=== PATIENT | male | born 1985 | race Caucasian/White ===

== ENCOUNTER 2024-05-20 17:33 | Inpatient (IN) | payer OTHER, SELFPAY ==
--- OUTSIDE RECORDS SUMMARY | 2024-05-20 17:37 | XMS_ITS | Continuity of Care Document ---
Author Organization [facility] ter Address [address] [place] [id number]- Care Team Providers Care Claims Examiner Name Role Phone Not on Staff, PCP Primary Care Physician Unavail able Encounter [facility] Date(s): 03/31/20 - 04/02/[address] [address]- [facility] Discharge Disposition: A-D/C Home Attending Physician: Berta Vogel MD, Jessica Admitting Physician: Joe Funes MD Referring Physician: Not on Staff, Referring MD Allergies, Adverse Reactions, Alerts Substance Reaction Severity Status NKA Active Immunizations Given and Recorded Vaccine Date Status Refusal Reason tetanus/diphtheria/pertussis, acel(Tdap) 11/26/18 Given Medications folic acid 1 mg oral tablet 1 mg, 1, tablet, By Mouth, Daily, # 30 tablet, Refills 0, Tot. Refills 0, Maintenance, 03/15/20 11:02:00 EDT, Route to Pharmacy Electronically, [facility], 178, cm, 03/15/20 8:59:00 EDT, Height, 89, kg, 03/05/20 1:36:00 EDT, Dry Weight Start Date: 03/15/20 Status: Ordered multivitamin Therapeutic Multiple Vitamins oral tablet 1 tablet, By Mouth, Daily, # 30 tablet, 0 Refills, Maintenance, 03/15/20 11:02:00 EDT, Tablet, [facility], 1 tablet By Mouth Daily,x30 days, 178, cm, 03/15/20 8:59:00 EDT, Height, 89, kg, 03/05/20 1:36:00 EDT, Dry Weight Start Date: 03/15/20 Stop Date: 04/14/20 Status: Ordered thiamine 100 mg oral tablet 100 mg, 1, tablet, By Mouth, Daily, # 30 tablet, Refills 0, Tot. Refills 0, Acute 04/15/20 11:03:00EDT, 03/15/20 11:02:00 EDT, Route to Pharmacy Electronically, [facility], 178, cm, 03/15/20 8:59:00 EDT, Height, 89, kg, 03/05/20 1:36:00... Start Date: 03/15/20 Stop Date: 04/15/20 Status: Ordered Problem List Condition Effective Dates Status Health Status Inform ant Anxiety(Confirmed) Active Tobacco dependence syndrome(Confirmed) Active Results Radiology Reports * Exam Date Time Procedure Performing Provider Status 03/30/20 11:07 PM Chest 2 Views Frontal and Lat Quyen Dumont; Auth (Verified) Notes: (Chest 2 Views Frontal and Lat) Reason For Exam: Shortness of Breath RESULT: Chest 2 Views Frontal and Lat Chest 2 Views Frontal and Lat Refer to EMR; Reason: Shortness of Breath; Clinical Question(s): Pneumonia; Hx of Present Illness: pt presents w multiple complaints, recent health issues. 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 LUNGS AND PLEURA: Low lung volumes with mild basilar atelectasis. Lungs are otherwise clear with no consolidation. No pleural effusion. No pneumothorax. HEART, MEDIASTINUM AND JOEY: Heart is normal in size. Normal mediastinal and hilar contour. BONES AND SOFT TISSUES: No acute abnormality. IMPRESSION: Low lung volumes with mild bibasilar atelectasis. WSN: [id number] Ordering Physician: Edmundo Stuart Dictated By: Lance Mckeon DO Dictated Date/Time: 03/30/20 11:10 p Reviewed By: Lance Mckeon DO Signed By: Lance Mckeon DO Signed Date/Time: 03/30/20 11:10 pm Transcribed By: LESTER Transcribed Date/Time: 03/30/20 11:09 pm Vital Signs Most recent to oldest [Reference Range]: 1 2 3 Height 178 cm (04/02/20 8:40 AM) 178 cm (04/01/20 2:29 AM) 178 cm (03/31/20 7:47 PM) Weight 86 kg (03/31/20 5:18 PM) 87.1 kg (03/31/20 4:48 AM) 87.1 kg (03/31/20 1:31 AM) Oxygen Saturation [94-100 %] 94 % (04/02/20 8:40 AM) 96 % (04/02/20 2:45 AM) 98 % (04/01/20 7:57 PM) Pulse Rate [55-90 bpm] 78 bpm (04/02/20 8:40 AM) 88 bpm (04/02/20 2:45 AM) 85 bpm (04/01/20 7:57 PM) Body Mass Index [18.5-24.99] 27.14 *H* (03/31/20 5:18 PM) Blood Pressure [90-138/55-84 mm Hg] 135/90mm Hg (04/02/20 8:40 AM) 130/95mm Hg (04/02/20 2:45 AM) 126/87mm Hg (04/01/20 7:57 PM) Respiratory Rate [16-30 br/min] 18 br/min (04/02/20 8:40 AM) 18 br/min (04/02/20 2:45 AM) 18 br/min (04/01/20 7:57 PM) Temperature [96.8-100.4 DegF] 97.4 DegF (04/02/20 8:40 AM) 98.1 DegF (04/02/20 2:45 AM) 98.0 DegF (04/01/20 7:57 PM) Mode of Delivery (Oxygen) Room air (04/02/20 8:40 AM) Room air (04/02/20 2:45 AM) Room air (04/01/20 7:57 PM) Blood pressure sites Arm, left (04/02/20 8:40 AM) Arm, left (04/02/20 2:45 AM) Arm, left (04/01/20 7:57 PM) Temperature Route Oral (04/02/20 8:40 AM) Oral (04/02/20 2:45 AM) Oral (04/01/20 7:57 PM) Dry Weight 86 kg (03/31/20 5:18 PM) 87.1 kg (03/31/20 4:48 AM) 87.1 kg (03/31/20 1:31 AM) Weight Obtained Via Bed scale (03/31/20 5:18 PM) Standing scale (03/30/20 7:40 PM) Dry Weight Obtained Via Bed scale (03/31/20 5:18 PM) Standing scale (03/30/20 7:40 PM)
--- OUTSIDE RECORDS SUMMARY | 2024-05-20 17:37 | XMS_ITS | Continuity of Care Document ---
Author Organization [facility] ter Address [address] [place] [id number]- Care Team Providers Care Talent Development Specialist Name Role Phone Not on Staff, PCP Primary Care Physician Unavail able Encounter [facility] Date(s): 06/23/21 - 06/24/[address] [address]- Encounter Diagnosis Chest discomfort(Final) - 06/23/21 Discharge Disposition: A-D/C Home Attending Physician: Val Bhatti MD Admitting Physician: Val Bhatti MD Referring Physician: Not on Staff, Referring MD Allergies, Adverse Reactions, Alerts Substance Reaction Severity Status NKA Active Immunizations Given and Recorded Vaccine Date Status Refusal Reason tetanus/diphtheria/pertussis, acel(Tdap) 11/26/18 Given Medications multivitamin Therapeutic Multiple Vitamins oral tablet 1 tablet, By Mouth, Daily, # 30 tablet, 0 Refills, Maintenance, 03/15/20 11:02:00 EDT, Tablet, [facility], 1 tablet By Mouth Daily,x30 days, 178, cm, 03/15/20 8:59:00 EDT, Height, 89, kg, 03/05/20 1:36:00 EDT, Dry Weight Start Date: 03/15/20 Stop Date: 04/14/20 Status: Ordered Problem List Condition Effective Dates Status Health Status Inform ant Alcohol dependence(Confirmed) Active Anxiety(Confirmed) Active Tobacco dependence syndrome(Confirmed) Active Results Radiology Reports * Exam Date Time Procedure Performing Provider Status 06/23/21 3:04 PM Chest 2 Views Frontal and Lat Kaitlynn Ferrera; Auth (Verified) Notes: (Chest 2 Views Frontal and Lat) Reason For Exam: Chest Pain;Other: RESULT: Chest 2 Views Frontal and Lat Chest 2 Views Frontal and Lat Hx of Present Illness: pt states since Saturday c o weakness, general fatigue, chills. Having chest pain sharp to left side, sob without a cough. Nausea, abd pain epigastric, vomiting. diarrhea. Dailyetoh - last drink was yesterday. Also neck and back pain , no injury per pt; Reason: Other:; Chest Pain; Clinical Question(s): Other: COMPARISON: 03/30/2020. Study is limited because patient has not taken a proper inspiration. FINDINGS: LINES AND TUBES: None. LUNGS AND PLEURA: Clear lungs. Normal pulmonary vascularity. No pleural effusion. No pneumothorax. HEART, MEDIASTINUM AND JOEY: Heart is normal in size. Normal upper mediastinal and hilar contour. BONES AND SOFT TISSUES: No acute abnormality. IMPRESSION: No acute abnormality. WSN: [id number] Ordering Physician: Lexus Manzano Dictated By: Dwight Olivarez MD Dictated Date/Time: 06/23/21 3:09 pm Reviewed By: Dwight Olivarez MD Signed By: Dwight Olivarez MD Signed Date/Time: 06/23/21 3:09 pm Transcribed By: LESTER Transcribed Date/Time: 06/23/21 3:06 pm Vital Signs Most recent to oldest [Reference Range]: 1 2 3 Oxygen Saturation [94-100 %] 96 % (06/24/21 2:04 AM) 99 % (06/23/21 10:58 PM) 98 % (06/23/21 8:21 PM) Pulse Rate [55-90 bpm] 80 bpm (06/24/21 2:04 AM) 92 bpm *H* (06/23/21 10:58 PM) 89 bpm (06/23/21 8:21 PM) Blood Pressure [90-138/55-84 mm Hg] 138/86mm Hg (06/24/21 2:04 AM) 127/74mm Hg (06/23/21 10:58 PM) 160/109mm Hg *H* (06/23/21 8:21 PM) Respiratory Rate [16-30 br/min] 23 br/min (06/24/21 2:04 AM) 28 br/min (06/23/21 10:58 PM) 20 br/min (06/23/21 8:21 PM) Temperature [96.8-100.4 DegF] 98.2 DegF (06/24/21 2:04 AM) 98.6 DegF (06/23/21 10:58 PM) 98.6 DegF (06/23/21 8:21 PM) Mode of Delivery (Oxygen) Room air (06/24/21 2:04 AM) Room air (06/23/21 10:58 PM) Room air (06/23/21 8:21 PM) Blood pressure sites Arm, left (06/24/21 2:04 AM) Arm, left (06/23/21 10:58 PM) Arm, left (06/23/21 2:18 PM) Temperature Route Oral (06/24/21 2:04 AM) Oral (06/23/21 10:58 PM) Oral (06/23/21 8:21 PM) Social History Social History Type Response Tobacco Use: 4 or less cigar ettes(less than 1/4 pack)/day in last 30 days. Type: Cigarettes. Sex
--- OUTSIDE RECORDS SUMMARY | 2024-05-20 17:37 | XMS_ITS | Continuity of Care Document ---
Author Organization [facility] ter Address [address] [place] [id number]- Care Team Providers Care Sapphire Stylus Grinder Name Role Phone Not on Staff, PCP Primary Care Physician Unavail able Encounter [facility] Date(s): 07/27/21 - 08/01/[address] [address] Encounter Diagnosis Acute depression(Final) - 07/28/21 Discharge Disposition: Transfer to [facility] Facility Attending Physician: Haley Reagan MD Admitting Physician: Haley Reagan MD Referring Physician: Not on Staff, Referring MD Allergies, Adverse Reactions, Alerts Substance Reaction Severity Status NKA Active Immunizations Given and Recorded Vaccine Date Status Refusal Reason tetanus/diphtheria/pertussis, acel(Tdap) 11/26/18 Given Not Given Vaccine Date Status Refusal Reason influenza virus vaccine, inactivated 08/01/21 Not Given Patient Refuses Medications multivitamin Therapeutic Multiple Vitamins oral tablet [...] Active Anxiety(Confirmed) Active Tobacco dependence syndrome(Confirmed) Active Vital Signs Most recent to oldest [Reference Range]: 1 2 3 Height 180 cm (08/01/21 9:02 AM) 180 cm (07/31/21 8:03 PM) 180 cm (07/31/21 12:39 PM) Weight 83 kg (07/31/21 12:39 PM) Oxygen Saturation [94-100 %] 97 % (08/01/21 9:02 AM) 99 % (07/31/21 8:03 PM) 100 % (07/31/21 12:39 PM) Pulse Rate [55-90 bpm] 94 bpm *H* (08/01/21 9:02 AM) 76 bpm (07/31/21 8:03 PM) 71 bpm (07/31/21 12:39 PM) Body Mass Index [18.5-24.99] 25.62 *H* (07/31/21 12:39 PM) Blood Pressure [90-138/55-84 mm Hg] 133/84mm Hg (08/01/21 9:02 AM) 121/73mm Hg (07/31/21 8:03 PM) 123/80mm Hg (07/31/21 12:39 PM) Respiratory Rate [16-30 br/min] 18 br/min (08/01/21 9:02 AM) 18 br/min (07/31/21 8:03 PM) 17 br/min (07/31/21 12:39 PM) Temperature [96.8-100.4 DegF] 97.8 DegF (08/01/21 9:02 AM) 97.7 DegF (07/31/21 8:03 PM) 96.7 DegF *L* (07/31/21 12:39 PM) Liters per Minute 1 L/min (07/27/21 1:02 PM) 1 L/min (07/27/21 11:53 AM) 1 L/min (07/27/21 11:43 AM) Mode of Delivery (Oxygen) Room air (08/01/21 9:02 AM) Room air (07/31/21 8:03 PM) Room air (07/31/21 12:39 PM) Blood pressure sites Arm, right (07/31/21 12:39 PM) Arm, right (07/31/21 6:50 AM) Arm, right (07/30/21 11:03 PM) Temperature Route Core (08/01/21 9:02 AM) Temporal (07/31/21 8:03 PM) Temporal (07/31/21 12:39 PM) Dry Weight 83 kg (07/31/21 12:39 PM) Weight Obtained Via Standing scale (07/31/21 12:39 PM) Social History Social History Type Response Tobacco Use: 4 or less cigar ettes(less than 1/4 pack)/day in last 30 days. Type: Cigarettes. Sex
--- OUTSIDE RECORDS SUMMARY | 2024-05-20 17:37 | XMS_ITS | Continuity of Care Document ---
Author Organization [facility] ter Address [address] [place] [address]- Care Team Providers Care Splitting Machine Tender Name Role Phone Not on Staff, PCP Primary Care Physician Unavail able Encounter [facility] Date(s): 03/04/20 - 03/15/[address] [address]- [facility] Encounter Diagnosis Acute pancreatitis(Final) - 03/04/20 Discharge Disposition: A-D/C Home Attending Physician: Augusta DODSON, Hattie Greene Admitting Physician: Luke Palacios MD Referring Physician: Not on Staff, Referring MD Allergies, Adverse Reactions, Alerts Substance Reaction Severity Status NKA Active Immunizations Given and Recorded Vaccine Date Status Refusal Reason tetanus/diphtheria/pertussis, acel(Tdap) 11/26/18 Given Medications folic acid 1 mg oral tablet 1 mg, 1, tablet, By Mouth, Daily, # 30 tablet, Refills 0, Tot. Refills 0, Maintenance, 03/15/20 11:02:00 EDT, Route to Pharmacy Electronically, [facility], 178, cm, 03/15/20 8:59:00 EDT, Height, 89, kg, 03/05/20 1:36:00 EDT, Dry Weight Start Date: 03/15/20 Status: Ordered multivitamin Therapeutic Multiple Vitamins oral tablet 1 tablet, By Mouth, Daily, # 30 tablet, 0 Refills, Maintenance, 03/15/20 11:02:00 EDT, Tablet, [facility], 1 tablet By Mouth Daily,x30 days, 178, cm, 03/15/20 8:59:00 EDT, Height, 89, kg, 03/05/20 1:36:00 EDT, Dry Weight Start Date: 03/15/20 Stop Date: 04/14/20 Status: Ordered thiamine 100 mg oral tablet 100 mg, 1, tablet, By Mouth, Daily, # 30 tablet, Refills 0, Tot. Refills 0, Acute 04/15/20 11:03:00EDT, 03/15/20 11:02:00 EDT, Route to Pharmacy Electronically, [facility], 178, cm, 03/15/20 8:59:00 EDT, Height, 89, kg, 03/05/20 1:36:00... Start Date: 03/15/20 Stop Date: 04/15/20 Status: Ordered vancomycin 25 mg/mL oral liquid 5 mL = 125 mg, By Mouth, Every 6 hours, Doses greater than 125 mg require ID consult., # 200 mL, 0 Refills, Acute 03/24/20 23:59:00 EDT, 03/15/20 11:04:00 EDT, Suspension, [facility], 178, cm, 03/15/20 8:59:00 EDT, Height, 89, kg, 03/05/... Start Date: 03/15/20 Stop Date: 03/24/20 Status: Ordered Problem List Condition Effective Dates Status Health Status Inform ant Anxiety(Confirmed) Active Tobacco dependence syndrome(Confirmed) Active Results Orders for Microbiology Reports Name Date Stool Culture 03/09/20 Blood Culture 03/07/20 Blood Culture #2 03/07/20 MRSA Screen 03/06/20 Sputum Culture w/ Gram Smear 03/06/20 Microbiology Reports TEST:Stool Culture STATUS:Auth (Verified) BODY SITE: SOURCE:STOOL COLLECTED DATE/TIME:03/09/20 10:15 AM Stool Culture SPECIMEN DESCRIPTION : STOOL IN MARK MAGALY PRESERVATIVE SPECIAL REQUESTS : NONE CULTURE : SHIGA TOXIN 1 AND 2 NOT DETECTED NO SALMONELLA, SHIGELLA, CAMPYLOBACTER, AEROMONAS OR E.COLI O157:[id number] ISOLATED. REPORT STATUS : FINAL 03/11/2020 TEST:Blood Culture STATUS:Auth (Verified) BODY SITE: SOURCE:Blood COLLECTED DATE/TIME:03/07/20 10:41 AM Blood Culture SPECIMEN DESCRIPTION : BLOOD NO SITE SPECIAL REQUESTS : NONE CULTURE : NO GROWTH 5 DAYS. REPORT STATUS : FINAL 03/12/2020 TEST:Blood Culture, Second Order STATUS:Auth (Verified) BODY SITE: SOURCE:Blood COLLECTED DATE/TIME:03/07/20 10:41 AM Blood Culture, Second Order SPECIMEN DESCRIPTION : BLOOD NONE SPECIAL REQUESTS : NONE CULTURE : NO GROWTH 5 DAYS. REPORT STATUS : FINAL 03/12/2020 TEST:Sputum Culture STATUS:Auth (Verified) BODY SITE: SOURCE:EXPECT COLLECTED DATE/TIME:03/06/20 5:06 PM Sputum Culture SPECIMEN DESCRIPTION : EXPECTORATED SPUTUM SPECIAL REQUESTS : NONE GRAM STAIN : 4+ SQ.EPITHELIAL CELLS 2+ POLYMORPHONUCLEAR LEUKOCYTES 3+ GRAM POSITIVE COCCI 3+ GRAM NEGATIVE RODS 2+ GRAM POSITIVE RODS CULTURE : MICROSCOPIC EXAM SHOWS SQUAMOUS EPITHELIAL CELLS INDICATIVE OF OROPHARYNGEAL CONTAMINATION. PLEASE RECOLLECT APPROPRIATE SPECIMEN FOR CULTURE IF CLINICALLY INDICATED. REPORT STATUS : FINAL 03/07/2020 TEST:MRSA Screen STATUS:Auth (Verified) BODY SITE: SOURCE:SWAB1 COLLECTED DATE/TIME:03/06/20 5:06 PM MRSA Screen SPECIMEN DESCRIPTION : SWAB NARES LT SPECIAL REQUESTS : NONE CULTURE : NO METHICILLIN RESISTANT STAPHYLOCOCCUS AUREUS ISOLATED REPORT STATUS : FINAL 03/08/2020 Radiology Reports * Exam Date Time Procedure Performing Provider Status 03/10/20 6:58 AM Abdomen AP Solis, William; Auth (Veri fied) Notes: (Abdomen AP) Reason For Exam: Pain RESULT: XR Abdomen AP XR Abdomen AP Refer to EMR; Reason: Pain; Clinical Question(s): Other:; toxic megacolon, C Diff infection; Hx of Present Illness: pt reports generalized abd. discomfort, dark urine and hematuria since last evening. denies NVD, last BM yesterday and described as normal , denies fevers cough cold symptoms but sts the pain makes me feel short of breath denies blood thinner use.; Other Objective Findings: pt is COMPARISON: CT abdomen 03/04/2020 FINDINGS: Normal bowel gas pattern. No abnormal stool retention. No abnormal calcifications. No acute bony abnormalities. IMPRESSION: No acute abnormality. WSN: [id number] Ordering Physician: Sabiha Mendoza Dictated By: Vivek Lagunas MD Dictated Date/Time: 03/10/20 8:00 am Reviewed By: Vivek Lagunas MD Signed By: Vivek Lagunas MD Signed Date/Time: 03/10/20 8:00 am Transcribed By: LESTER Transcribed Date/Time: 03/10/20 7:57 am * Exam Date Time Procedure Performing Provider Status 03/07/20 11:51 AM Chest Portable Ni Tran Ness; Yasmani (Verified) Notes: (Chest Portable) Reason For Exam: dyspnea;Other: RESULT: Chest Portable Examination: Portable chest performed on 03/07/2020 at 11:31 AM. History: Dyspnea. Findings: A frontal view of the chest is compared to a prior study dated 03/05/2020. The cardiac and mediastinal silhouettes are within normal limits. Low lung volumes persist. There is no significant change in the left pleural effusion. Bibasilar airspace opacities are also seen. The osseous structures are intact. IMPRESSION: There is no change from the prior study. WSN: [id number] Ordering Physician: Diogenes Flores Dictated By: Amelia Rivera MD Dictated Date/Time: 03/07/20 11:54 a Reviewed By: Amelia Rivera MD Signed By: Amelia Rivera MD Signed Date/Time: 03/07/20 11:54 am Transcribed By: LESTER Transcribed Date/Time: 03/07/20 11:53 am * Exam Date Time Procedure Performing Provider Status 03/05/20 9:53 PM Chest Portable Lyn Dove; Yasmani (V erified) Notes: (Chest Portable) Reason For Exam: CHF RESULT: Chest Portable Chest Portable REASON: CHF; CLINICAL QUESTION(S): CHF; HX OF PRESENT ILLNESS: PT REPORTS GENERALIZED ABD. DISCOMFORT, DARK URINE AND HEMATURIA SINCE LAST EVENING. DENIES NVD, COMPARISON: 03/04/2020 FINDINGS: LINES AND TUBES: None. LUNGS AND PLEURA: Left pleural effusion. Bilateral airspace disease could be related to atelectasis or consolidation. HEART, MEDIASTINUM AND JOEY: Unchanged. BONES AND SOFT TISSUES: No acute abnormality. IMPRESSION: New left pleural effusion. Bibasilar opacities could be related to consolidation or atelectasis. WSN: [id number] Ordering Physician: Sabiha Mendoza Dictated By: Torin Edwards MD Dictated Date/Time: 03/05/20 10:27 p Reviewed By: Torin Edwards MD Signed By: Torin Edwards MD Signed Date/Time: 03/05/20 10:27 pm Transcribed By: LESTER Transcribed Date/Time: 03/05/20 10:25 pm * Exam Date Time Procedure Performing Provider Status 03/04/20 2:57 PM Chest Portable Libra Pinedo; Kenny h (Verified) Notes: (Chest Portable) Reason For Exam: Abdominal Pain RESULT: Chest Portable Chest Portable Refer to EMR; Reason: Abdominal Pain; Clinical Question(s): Other:; Special Instructions: Upright, evaluate for free air; Hx of Present Illness: pt reports generalized abd. discomfort, dark urine andhematuria since last evening. denies NVD, last BM yesterday and described as normal , denies fevers cough cold symptoms but sts the pain makes me feel short of breath denies blood thinner use. COMPARISON: None. FINDINGS: LINES AND TUBES: None. LUNGS AND PLEURA: Linear platelike atelectasis right base. Low lung volumes bilaterally. No pleural effusion. No pneumothorax. HEART, MEDIASTINUM AND JOEY: Heart is normal in size. Normal mediastinal and hilar contour. BONES AND SOFT TISSUES: No acute abnormality. No evidence of free intraperitoneal air. IMPRESSION: Low lung volumes with linear platelike atelectasis right base. Otherwise no active disease. No evidence of free intraperitoneal air. WSN: [id number] Ordering Physician: Jory Giles Dictated By: Mason Pierce MD Dictated Date/Time: 03/04/20 3:04 pm Reviewed By: Mason Pierce MD Signed By: Mason Pierce MD Signed Date/Time: 03/04/20 3:04 pm Transcribed By: LESTER Transcribed Date/Time: 03/04/20 3:01 pm Vital Signs Most recent to oldest [Reference Range]: 1 2 3 Height 178 cm (03/15/20 8:59 AM) 178 cm (03/15/20 4:59 AM) 178 cm (03/14/20 11:57 PM) Weight 81.6 kg (03/13/20 5:56 AM) 75.3 kg (03/05/20 1:45 PM) 88.0 kg (03/05/20 1:24 AM) Oxygen Saturation [94-100 %] 99 % (03/15/20 8:59 AM) 97 % (03/15/20 4:59 AM) 93 % *L* (03/14/20 11:57 PM) Pulse Rate [55-90 bpm] 88 bpm (03/15/20 8:59 AM) 87 bpm (03/15/20 4:59 AM) 83 bpm (03/14/20 11:57 PM) Body Mass Index [18.5-24.99] 25.75 *H* (03/13/20 5:56 AM) 23.77 (03/05/20 1:45 PM) 28.09 *H* (03/05/20 1:07 AM) Blood Pressure [90-138/55-84 mm Hg] 150/85mm Hg *H* (03/15/20 8:59 AM) 120/80mm Hg (03/15/20 4:59 AM) 140/85mm Hg *H* (03/14/20 11:57 PM) Respiratory Rate [16-30 br/min] 28 br/min (03/15/20 8:59 AM) 16 br/min (03/15/20 4:59 AM) 18 br/min (03/14/20 11:57 PM) Temperature [96.8-100.4 DegF] 98.3 DegF (03/15/20 8:59 AM) 97.9 DegF (03/15/20 4:59 AM) 98.3 DegF (03/14/20 11:57 PM) Liters per Minute 2 L/min (03/11/20 2:00 AM) 2 L/min (03/10/20 11:00 PM) 3 L/min (03/10/20 7:00 PM) Mode of Delivery (Oxygen) Room air (03/15/20 8:59 AM) Room air (03/15/20 4:59 AM) Room air (03/14/20 11:57 PM) Blood pressure sites Arm, left (03/15/20 8:59 AM) Arm, left (03/15/20 4:59 AM) Arm, right (03/14/20 11:57 PM) Temperature Route Oral (03/15/20 8:59 AM) Oral (03/15/20 4:59 AM) Oral (03/14/20 11:57 PM) Dry Weight 89 kg (03/05/20 1:07 AM) Weight Obtained Via Bed scale (03/13/20 5:56 AM) Bed scale (03/05/20 1:45 PM) Bed scale (03/05/20 1:24 AM) Dry Weight Obtained Via Bed scale (03/05/20 1:07 AM)
--- OUTSIDE RECORDS SUMMARY | 2024-05-20 17:37 | XMS_ITS | Continuity of Care Document ---
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 Role Phone Not on Staff, PCP Primary Care Physician Unavail able Encounter [facility] Date(s): 02/24/21 - 03/02/[address] [address]- Discharge Disposition: A-D/C Home Attending Physician: Andrae DODSON, Laura Medley Admitting Physician: Gabrielle DODSON, Coreen Medley Referring Physician: Emerson Shell DO Allergies, Adverse Reactions, Alerts Substance Reaction Severity Status NKA Active Immunizations Given and Recorded Vaccine Date Status Refusal Reason tetanus/diphtheria/pertussis, acel(Tdap) 11/26/18 Given Medications acetaminophen 325 mg oral tablet 650 mg, By Mouth, 3 times a day, PRN, for 7 days, Temperature Greater than 100.5, # 24 tablet, Refills 0, Tot. Refills 0, Acute 03/09/21 14:15:00 EDT, Pain , Moderate, 03/02/21 14:15:00 EDT, Route toPharmacy Electronically, [facility] #[id number]... Start Date: 03/02/21 Stop Date: 03/09/21 Status: Ordered FLUoxetine 10 mg oral capsule 10 mg, 1, capsule, By Mouth, Daily, # 30 capsule, Refills 0, Tot. Refills 0, Maintenance, 03/02/21 14:15:00 EDT, Route to Pharmacy Electronically, [facility] #[id number], Partial fill upon patient request if the prescription is for a schedule II... Start Date: 03/02/21 Stop Date: 04/01/21 Status: Ordered HYDROmorphone Inj 1.5 mg, Injection, IV Push Slowly, Every 3 hours, Start with a dose now., PRN for Pain , Severe, Routine, 02/24/21 23:36:00 EDT Start Date: 02/24/21 Stop Date: 03/03/21 Status: Discontinued multivitamin Therapeutic Multiple Vitamins oral tablet 1 tablet, By Mouth, Daily, # 30 tablet, 0 Refills, Maintenance, 03/15/20 11:02:00 EDT, Tablet, [facility], 1 tablet By Mouth Daily,x30 days, 178, cm, 03/15/20 8:59:00 EDT, Height, 89, kg, 03/05/20 1:36:00 EDT, Dry Weight Start Date: 03/15/20 Stop Date: 04/14/20 Status: Ordered Nicoderm C-Q Clear 21 mg/24 hr transdermal film, extended release 1 patch, Topically, Daily, for 30 days, # 30 patch, 0 Refills, Acute 04/01/21 14:17:00 EDT, 03/02/21 14:17:00 EDT, Patch, [facility] #[id number], Partial fill upon patient request if the prescription is for a schedule II opioid drug., 176, cm, 05... Start Date: 03/02/21 Stop Date: 04/01/21 Status: Ordered prazosin 1 mg oral capsule 1 mg, 1, capsule, By Mouth, Daily at bedtime, # 30 capsule, Refills 0, Tot. Refills 0, Maintenance,03/02/21 14:15:00 EDT, Route to Pharmacy Electronically, [facility] #[id number], Partial fill upon patient request if the prescription is for a sc... Start Date: 03/02/21 Stop Date: 04/01/21 Status: Ordered prazosin 1 mg oral capsule 1 mg, Capsule, By Mouth, 03/01/21 21:00:00 EDT Start Date: 03/01/21 Stop Date: 03/01/21 Status: Completed thiamine 100 mg oral tablet 100 mg, 1, tablet, By Mouth, Daily, for 30 days, # 30 tablet, Refills 0, Tot. Refills 0, Acute 04/01/21 14:16:00 EDT, 03/02/21 14:16:00 EDT, Route to Pharmacy Electronically, [facility] #[id number], Partial fill upon patient request if the prescr... Start Date: 03/02/21 Stop Date: 04/01/21 Status: Ordered traZODone 50 mg oral tablet 100 mg, 2, tablet, By Mouth, Daily at bedtime, # 60 tablet, Refills 0, Tot. Refills 0, Maintenance,03/02/21 14:16:00 EDT, Route to Pharmacy Electronically, [facility] #[id number], Partial fill upon patient request if the prescription is for a sc... Start Date: 03/02/21 Status: Ordered Problem List Condition Effective Dates Status Health Status Inform ant Alcohol dependence(Confirmed) Active Anxiety(Confirmed) Active Tobacco dependence syndrome(Confirmed) Active Results Orders for Microbiology Reports Name Date Blood Culture 02/24/21 Blood Culture #2 02/24/21 Microbiology Reports TEST:Blood Culture, Second Order STATUS:Auth (Verified) BODY SITE: SOURCE:Blood COLLECTED DATE/TIME:02/24/21 10:10 PM Blood Culture, Second Order SPECIMEN DESCRIPTION : BLOOD LEFT HAND SPECIAL REQUESTS : NONE CULTURE : NO GROWTH 5 DAYS. REPORT STATUS : FINAL 03/01/2021 TEST:Blood Culture STATUS:Auth (Verified) BODY SITE: SOURCE:Blood COLLECTED DATE/TIME:02/24/21 10:05 PM Blood Culture SPECIMEN DESCRIPTION : BLOOD RIGHT HAND SPECIAL REQUESTS : NONE CULTURE : NO GROWTH 5 DAYS. REPORT STATUS : FINAL 03/01/2021 Radiology Reports * Exam Date Time Procedure Performing Provider Status 02/26/21 8:43 AM Chest 2 Views Frontal and Lat Michelle Stacy; Auth (Verified) Notes: (Chest 2 Views Frontal and Lat) Reason For Exam: left chest pain, hypoxia, diminished in left base,? pna, effusion;Shortness of Breath RESULT: Chest 2 Views Frontal and Lat Chest 2 Views Frontal and Lat REASON: Shortness of Breath; left chest pain, hypoxia, diminished in left base, ? pna, effusion; Clinical Question(s): Pneumonia / Pneumonia COMPARISON: 03/30/2020, CT abdomen and pelvis from 02/24/2021. FINDINGS: LINES AND TUBES: None. LUNGS AND PLEURA: Low lung volumes. Bibasilar airspace opacity, left worse than right. Small bilateral pleural effusions. No pneumothorax. HEART, MEDIASTINUM AND JOEY: Heart is normal in size. Normal mediastinal and hilar contour. BONES AND SOFT TISSUES: No acute osseous abnormality. Gas-filled loops of bowel in the midabdomen. IMPRESSION: Small bilateral pleural effusions with bibasilar airspace opacity which could be due to atelectasis, pneumonia, or aspiration. WSN: [id number] Ordering Physician: Bahman Tipton Dictated By: Chris Mejia MD Dictated Date/Time: 02/26/21 1:52 pm Reviewed By: Chris Mejia MD Signed By: Chris Mejia MD Signed Date/Time: 02/26/21 1:52 pm Transcribed By: LESTER Transcribed Date/Time: 02/26/21 1:51 pm Vital Signs Most recent to oldest [Reference Range]: 1 2 3 Height 176 cm (03/02/21 2:00 PM) 176 cm (03/02/21 4:16 AM) 176 cm (03/01/21 8:02 PM) Weight 95 kg (02/25/21 1:51 AM) 91.4 kg (02/24/21 10:47 PM) 91.4 kg (02/24/21 9:13 PM) Oxygen Saturation [94-100 %] 93 % *L* (03/02/21 2:00 PM) 91 % *L* (03/02/21 4:16 AM) 92 % *L* (03/01/21 8:02 PM) Pulse Rate [55-90 bpm] 89 bpm (03/02/21 2:00 PM) 89 bpm (03/02/21 4:16 AM) 93 bpm *H* (03/01/21 8:02 PM) Body Mass Index [18.5-24.99] 29.51 *H* (02/24/21 10:47 PM) 29.51 *H* (02/24/21 9:13 PM) 29.51 *H* (02/24/21 6:27 PM) Blood Pressure [90-138/55-84 mm Hg] 141/95mm Hg *H* (03/02/21 2:00 PM) 140/85mm Hg *H* (03/02/21 4:16 AM) 141/97mm Hg *H* (03/01/21 11:12 PM) Respiratory Rate [16-30 br/min] 20 br/min (03/02/21 3:08 PM) 20 br/min (03/02/21 2:00 PM) 18 br/min (03/02/21 11:47 AM) Temperature [96.8-100.4 DegF] 99.2 DegF (03/02/21 2:00 PM) 98.1 DegF (03/02/21 4:16 AM) 98.7 DegF (03/01/21 8:02 PM) Liters per Minute 2 L/min (03/01/21 5:05 AM) 2 L/min (02/28/21 8:11 PM) 2 L/min (02/28/21 2:00 PM) Mode of Delivery (Oxygen) Room air (03/02/21 2:00 PM) Room air (03/02/21 4:16 AM) Room air (03/01/21 8:02 PM) Blood pressure sites Arm, right (03/02/21 2:00 PM) Arm, right (03/02/21 4:16 AM) Arm, left (03/01/21 8:02 PM) Temperature Route Oral (03/02/21 2:00 PM) Oral (03/02/21 4:16 AM) Oral (03/01/21 8:02 PM) Dry Weight 91.4 kg (02/24/21 10:47 PM) 91.4 kg (02/24/21 9:13 PM) 91.4 kg (02/24/21 6:30 PM) Weight Obtained Via Standing scale (02/25/21 1:51 AM) Standing scale (02/24/21 6:27 PM) Dry Weight Obtained Via Standing scale (02/24/21 6:27 PM) Social History Social History Type Response Tobacco Use: 4 or less cigar ettes(less than 1/4 pack)/day in last 30 days. Type: Cigarettes. Sex
[2024-05-20 17:54] VITALS: BMI 26.3
[2024-05-20 17:56] VITALS: BP 122/68; PULSE 97; TEMP 36.3; O2SAT 99
--- NOTE | 2024-05-20 19:08 | PC.ADMIT ---
This 39 y.o. male was referred from [facility] Care Team with Dx of SI, Medication Overdose. Nurse to nurse done prior to admission. Dr Chirinos cleared pt for admission after reviewing EKG and aware of pending tox screen. Arrived on unit at 1744 via ambulance and placed on 15 min safety checks. CV signed and accepted in [facility] by Dr Vega. Precipitating events to admission; presented to [facility] [place] ambulance on [address] due to taking an unknown amt of Seroquel and cutting self. Pt's response to this report is that he took 3 100mg tabs of Seroquel. States his dosage had been 300mg and he is currently being weaned to lesser dose. Superficial cuts noted left lower and upper arm-4 deeper cuts and multiple scratch areas. Pt reports he has a hx of cutting, which is not a suicide attempt. Scratch noted posterior right neck, unknown origin per pt. Denies medical issues. RUIZ results not obtained from [facility] Pt reports etoh occasionally, last use 5 dasy ago-2 glasses of wine. Reports cocaine use every 2 weeks, last use 7 days ago. Hx outpt substance treatment. Med reconciliation done with [facility] pharmacy. Maria Ines Garnre , provider, notified of admission and orders obtained. Hospitalist consult to be ordered. Cooperative with admission process. Has difficulty expressing self and relaying information at times. Does well when time allowed to respond to questions. Skin check done upon admission during exchange mechanic; 2 staff members present.
[2024-05-20] MEDS: traZODone HCL 50 MG TABLET PO (20:12)
[2024-05-20] MEDS: Nicotine Polacrilex 2 MG GUM BUCCAL (20:12)
[2024-05-20] MEDS: QUEtiapine Fumarate 300 MG TABLET PO (20:13)
[2024-05-20] MEDS: hydrOXYzine HCL 25 MG TABLET PO (20:13)
[2024-05-21] MEDS: Nicotine 21 MG PATCH.TD24 TRANSDERMA (09:38)
[2024-05-21] MEDS: Sertraline HCL 50 MG TABLET 150 MG PO (09:39)
[2024-05-21] MEDS: Naltrexone HCl 50 MG TABLET PO (09:39)
[2024-05-21 10:50] VITALS: BP 115/64; PULSE 94; RESP 18; TEMP 37; O2SAT 99
--- NOTE | 2024-05-21 11:39 | HO.PSYADMNOT ---
HPI Date of Service: 05/21/24 Chief Complaint: SI Sources of Information: patient interviewed, chart reviewed and crisis/core team assessment reviewed HPI Subjective Notes: Saenz Warning and Conditional Voluntary Healthcare Proxy: No Guardianship: No Medical Problems Affecting Mental Status: No Narrative: 39 yo male, hx of PTSD, depression, s/p overtaking of Seroquel prior to admission in an effort to sleep along with 3 forearm cuts (reports he has not cut in several years). Family was concerned about SI and encouraged him to admit. 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 Reports poor support at work, difficulty adjusting to the change in sleep schedule and attempting to manage chronic insomnia. Pt reports he cut for relief vs suicidality and believes he over-reacted due to chronic sleep deprivation. He states he needs to quit the job and find something more workable for a reasonable family lifestyle. Past Psychiatric History: IP: 2-3-Angelica, Kendy López OP: Ni Years; [facility] telehealth for meds Trials: Seroquel up to 300 mg hs, Trazodone-ineffective Suicide attempts: Denies Medical Evaluation Reviewed: Yes [facility] Medical History (Updated 05/21/24 @ 19:01 by Shelbi Quintana, RADIOLOGIC TECHNOLOGIST) PTSD (post-traumatic stress disorder) Depression Anxiety Alcohol use disorder Family History: PTSD Mom alcoholism Social History: Born in [place], Raised in [place], to [place] age 8 then returned to [place]. Childhood very difficult as pt at age 4-5 with family witnessed his father's murder. Mother has alcoholism and mood dysregualtion. 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 Hx of 6 months incarcerated 2 children, a sone age 10 and a daughter age 7. They live with their mother Substance History: AA-hx ETOH cocaine on occasion 1-2 x month Trauma History: Witness to father's murder, age 4-5 Diagnostics Vital Signs (24Hr): Vital Signs - 24 hr 05/20/24 17:56 05/21/24 10:50 Temperature 97.3 F 98.6 F Pulse Rate 97 94 Respiratory Rate 18 Blood Pressure 122/68 115/64 Pulse Oximetry 99 99 Oxygen Delivery Method Room Air Room Air BMI result Body Mass Index 26.3 Labs Labs: CBCD- WNL CMP Glucose 94 GFR 114, 111 TSH 0.42 BAL 0 Meds/Allergies Meds Home Medications ?Medication ?Instructions ?Recorded ?Confirmed ?Type hydroxyzine pamoate 50 mg capsule 50 mg PO BID PRN Anxiety 05/20/24 05/20/24 History naltrexone 50 mg tablet 50 mg PO DAILY 05/20/24 05/20/24 History quetiapine 300 mg tablet 300 mg PO BEDTIME 05/20/24 05/20/24 History sertraline 100 mg tablet 150 mg PO DAILY 05/20/24 05/20/24 History Allergies Allergies Allergy/AdvReac Type Severity Reaction Status Date / Time sertraline [From ZOLOFT] AdvReac Unknown SUICIDAL Unverified 07/07/20 19:48 THOUGHTS Mental Status Exam Mental Status Exam Patient Appearance: Appropriate Patient Orientation: Person, Place, Time and Situation Level of Consciousness: Alert Patient Behavior: Appropriate, Talkative, Cooperative and Good Eye Contact Mood Description: Depressed Affect Description: Flat Patient Cognition Impaired: No Ability to Follow Directions: Good Speech Pattern: Spontaneous Speech Memory Description: Intact Hallucinations: None Delusions: Not Present Thought Process: Rumination Thought Content: positive for Perseveration and positive for Suicidal Ideation (denies) Depressive Symptoms: Thoughts of /Suicide (denies) Judgement: Good Assessment & Plan Assessment & Plan (1) PTSD (post-traumatic stress disorder): Status: Acute Code(s): F43.10 - Post-traumatic stress disorder, unspecified (2) Adjustment reaction with mixed disturbance of emotions and conduct: Status: Acute Code(s): F43.25 - Adjustment disorder with mixed disturbance of emotions and conduct Plan PTSD, Adjustment Reaction, Mixed. Plan: Admit, CV, 15 minute checks Encourage full milieu Remeron 7.5 mg HS Decrease Seroquel to 100 mg HS Collateral contacts [facility] referral Discharge planning. Patient educated on: therapeutic strategies Reason for continued inpatient stay Substantial Risk for: rapid decompensation Statement Statement: I have reviewed the history and physical and performed a pertinent examination on my patient. No changes have occurred unless specified. If the History and Physical was not performed prior to admission, the Hospitalist's service will be consulted for completing the admission physical. Time Spent With Patient Time: Total time managing care of this patient today ____ minutes.
--- NOTE | 2024-05-21 13:00 | HO.PM.IMCN ---
History of Present Illness Data of Consult Service Date: 05/21/24 Primary Care Provider: Thomas Physician HPI Reason for consult: Admission H&P Pt is a 39-year-old male with a PMH significant for?alcohol use disorder, anxiety, depression, and prior self-harm who is admitted to psychiatry unit for increasing depression and SI. Patient notes she presented to [facility] ED with concerns for possible toxic ingestion of home Seroquel. Patient reports that he only took 3 tablets of Seroquel, but patient's girlfriend was concerned he consumed more. Patient also had superficially cut his left arm multiple times. Medical consult for admission H&P. ?Patient currently has no acute medical complaints at this time. Denies chest pain/pressure, palpitations. No shortness a breath or difficulty breathing. Denies cough or sore throat. No fever, chills, nausea, vomiting, abdominal pain. Patient denies any recent alcohol intake. Review of Systems Review of Systems: Patient denies any acute medical concerns at this time [facility] Medical History (Updated 05/21/24 @ 15:48 by JW Nieto) Depression Anxiety Alcohol use disorder Social History Household Members: Significant Other and Other Household Members Other:: Girlfriend's mother Housing: House Do you presently have visiting nurse or other home services: No Patient Tobacco Use Status: Current everyday Tobacco user Tobacco use type: Cigarette Cigarettes Per Day: 2 Years Smoked: 20 Smoked in Last 30 Days: Yes e-Cigarette/Vaping Use: Currently Using Frequency of e-Cigarette/Vaping Use: 10x day Patient Interested in Nicotine Replacement: Yes (patch) Patient Given Instructions on How to Stop Smoking: No (declined) Second Hand Smoke Exposure: No Use of substances other than those prescribed or required for medical reasons: Yes Substance Use Type: Crack/Cocaine Substance Use Frequency: Occasionally Last Used Substance: Weeks (ago) Currently Displaying Signs/Symptoms of Drug Intoxication Withdrawal: No Any prior treatment program specific to substance use: Yes (outpt treatment [facility]) Have you been hit, kicked, punched, or otherwise hurt by someone within the past year? If so, by whom?: No Do you feel safe in your current relationship?: Yes Is there a partner from a previous relationship who is making you feel unsafe now?: No Are you made to feel afraid or neglected: No Advance Directives: No Advance Directives Information Provided: No Do you have thoughts of harming others: None Do you have a plan to hurt others: No Plan Recently lost weight without trying: No Eating poorly because of decreased appetite: No Nutrition Risks: No Nutritional Risk Poor oral hygiene: No Meds Allergies Allergy/AdvReac Type Severity Reaction Status Date / Time sertraline [From ZOLOFT] AdvReac Unknown SUICIDAL Unverified 07/07/20 19:48 THOUGHTS Active Medications: Current Medications Acetaminophen (Acetaminophen 325 Mg Tablet) 650 mg PO Q6H PRN PRN Reason: Headache/Pain Mild Scale (1-3) Al Hydroxide/Mg Hydroxide (Magnesium Hydrox/Alum Hydrox 30 Ml Oral.Susp) 30 ml PO Q6H PRN PRN Reason: Heartburn/Nausea Hydroxyzine HCl (Hydroxyzine Hcl 25 Mg Tablet) 25 mg PO Q6H PRN PRN Reason: Anxiety Last Admin: 05/20/24 20:13 Dose: 25 mg Magnesium Hydroxide (Milk Of Magnesia 30 Ml Oral.Susp) 30 ml PO DAILY PRN PRN Reason: Constipation Naltrexone HCl (Naltrexone Hcl 50 Mg Tablet) 50 mg PO DAILY [facility] Last Admin: 05/21/24 09:39 Dose: 50 mg Nicotine (Nicotine 21 Mg Patch.Td24) 21 mg TRANSDERMA DAILY [facility] Last Admin: 05/21/24 09:38 Dose: 21 mg Nicotine Polacrilex (Nicotine Polacrilex 2 Mg Gum) 2 mg BUCCAL Q2H PRN PRN Reason: Nicotine Cravings Last Admin: 05/20/24 20:12 Dose: 2 mg Quetiapine Fumarate (Quetiapine Fumarate 300 Mg Tablet) 300 mg PO BEDTIME [facility] Last Admin: 05/20/24 20:13 Dose: 300 mg Sertraline HCl (Sertraline Hcl 50 Mg Tablet) 150 mg PO DAILY [facility] Last Admin: 05/21/24 09:39 Dose: 150 mg Trazodone HCl (Trazodone Hcl 50 Mg Tablet) 50 mg PO BEDTIME MRX1 PRN PRN Reason: Insomnia Last Admin: 05/20/24 20:12 Dose: 50 mg Home Medications ?Medication ?Instructions ?Recorded ?Confirmed ?Last Taken ?Type hydroxyzine pamoate 50 mg capsule 50 mg PO BID PRN Anxiety 05/20/24 05/20/24 Unknown History naltrexone 50 mg tablet 50 mg PO DAILY 05/20/24 05/20/24 Unknown History quetiapine 300 mg tablet 300 mg PO BEDTIME 05/20/24 05/20/24 Unknown History sertraline 100 mg tablet 150 mg PO DAILY 05/20/24 05/20/24 Unknown History Physical Exam Vital Signs and Narrative: Vital Signs: Last Vital Signs Temp 98.6 F 05/21/24 10:50 Pulse 94 05/21/24 10:50 Resp 18 05/21/24 10:50 BP 115/64 05/21/24 10:50 Pulse Ox 99 05/21/24 10:50 O2 Del Method Room Air 05/21/24 10:50 BMI result Body Mass Index 26.3 General: AOx3, no acute distress Resp: CTA bilaterally CVS: S1, S2, RRR GI: +BS, NT, no distention Skin: Warm, dry Neuro: Cranial nerves II-XII grossly intact bilaterally. Motor grossly intact bilaterally Extremities: No edema. Multiple superficial lacerations to left arm without signs of infection. Assessment and Plan (1) Medical clearance for psychiatric admission: Status: Acute Plan Pt is a 39-year-old male with a PMH significant for?alcohol use disorder, anxiety, depression, and prior self-harm who is admitted to [facility] psychiatry unit for increasing depression and SI. Patient notes she presented to [facility] ED with concerns for possible toxic ingestion of home Seroquel. Patient reports that he only took 3 tablets of Seroquel, but patient's girlfriend was concerned he consumed more. Patient also had superficially cut his left arm multiple times. Medical consult for admission H&P. Mood disorder Plan as per psychiatry Patient otherwise has no acute medical complaints or significant chronic medical conditions. Will sign off at this time. Thank you for allowing us to participate in the care of this patient. Please re-consult if any acute issue or need arises.
[2024-05-21] MEDS: Nicotine Polacrilex 2 MG GUM BUCCAL ×2 (19:33→21:10)
[2024-05-21 20:00] VITALS: BP 120/77; PULSE 102; RESP 20; TEMP 37.1; O2SAT 98
[2024-05-21] MEDS: Mirtazapine 7.5 MG TABLET PO (21:09)
[2024-05-21] MEDS: hydrOXYzine HCL 25 MG TABLET PO (21:09)
[2024-05-21] MEDS: traZODone HCL 50 MG TABLET PO (21:09)
[2024-05-21] MEDS: QUEtiapine Fumarate 100 MG TABLET PO (21:10)
[2024-05-22] MEDS: Nicotine 21 MG PATCH.TD24 TRANSDERMA (08:49)
[2024-05-22] MEDS: Naltrexone HCl 50 MG TABLET PO (08:49)
[2024-05-22] MEDS: Sertraline HCL 50 MG TABLET 150 MG PO (08:49)
[2024-05-22 08:54] VITALS: BP 128/72; PULSE 87; RESP 16; TEMP 36.4; O2SAT 99
[2024-05-22] MEDS: Nicotine Polacrilex 2 MG GUM BUCCAL ×3 (11:39→21:05)
--- NOTE | 2024-05-22 11:59 | P.PNPSI_ITS ---
Subjective Subjective Date of Service: 05/22/24 Reason For Visit: SI Subjective Notes: Conditional Voluntary Healthcare Proxy: No Guardianship: No Medical Problems Affecting Mental Status: No Interim History: Denies SI/HI/AH/VH [facility] application process initiated Talking about making a change in his work to improve work/life balance. Medication Compliance: Yes Side effects from medications: No Attending Groups: Intermittent Review of Systems Acute medical concerns: No Medical Review of Systems: unchanged Review of Systems Review of Systems Yes all other systems are reviewed and are negative Mental Status Exam Mental Status Exam Patient Appearance: Appropriate Patient Orientation: Person, Place, Time and Situation Level of Consciousness: Alert Patient Behavior: Appropriate, Talkative, Cooperative and Good Eye Contact Mood Description: Depressed Affect Description: Flat Patient Cognition Impaired: No Ability to Follow Directions: Good Speech Pattern: Spontaneous Speech Memory Description: Intact Hallucinations: None Delusions: Not Present Thought Process: Rumination Thought Content: positive for Perseveration and positive for Suicidal Ideation (denies) Depressive Symptoms: Thoughts of /Suicide (denies) Judgement: Good Diagnostics Vital Signs (24Hr): Vital Signs - 24 hr 05/21/24 20:00 05/22/24 08:54 Temperature 98.7 F 97.6 F Pulse Rate 102 H 87 Respiratory Rate 20 16 Blood Pressure 120/77 128/72 Pulse Oximetry 98 99 Oxygen Delivery Method Room Air BMI result Body Mass Index 26.3 Medications Medications Current Medications Acetaminophen (Acetaminophen 325 Mg Tablet) 650 mg PO Q6H PRN PRN Reason: Headache/Pain Mild Scale (1-3) Al Hydroxide/Mg Hydroxide (Magnesium Hydrox/Alum Hydrox 30 Ml Oral.Susp) 30 ml PO Q6H PRN PRN Reason: Heartburn/Nausea Hydroxyzine HCl (Hydroxyzine Hcl 25 Mg Tablet) 25 mg PO Q6H PRN PRN Reason: Anxiety Last Admin: 05/21/24 21:09 Dose: 25 mg Magnesium Hydroxide (Milk Of Magnesia 30 Ml Oral.Susp) 30 ml PO DAILY PRN PRN Reason: Constipation Mirtazapine (Mirtazapine 7.5 Mg Tablet) 7.5 mg PO BEDTIME [facility] Last Admin: 05/21/24 21:09 Dose: 7.5 mg Naltrexone HCl (Naltrexone Hcl 50 Mg Tablet) 50 mg PO DAILY [facility] Last Admin: 05/22/24 08:49 Dose: 50 mg Nicotine (Nicotine 21 Mg Patch.Td24) 21 mg TRANSDERMA DAILY [facility] Last Admin: 05/22/24 08:49 Dose: 21 mg Nicotine Polacrilex (Nicotine Polacrilex 2 Mg Gum) 2 mg BUCCAL Q2H PRN PRN Reason: Nicotine Cravings Last Admin: 05/22/24 11:39 Dose: 2 mg Quetiapine Fumarate (Quetiapine Fumarate 100 Mg Tablet) 100 mg PO BEDTIME [facility] Last Admin: 05/21/24 21:10 Dose: 100 mg Sertraline HCl (Sertraline Hcl 50 Mg Tablet) 150 mg PO DAILY [facility] Last Admin: 05/22/24 08:49 Dose: 150 mg Trazodone HCl (Trazodone Hcl 50 Mg Tablet) 50 mg PO BEDTIME MRX1 PRN PRN Reason: Insomnia Last Admin: 05/21/24 21:09 Dose: 50 mg Allergies Allergies Allergy/AdvReac Type Severity Reaction Status Date / Time sertraline [From ZOLOFT] AdvReac Unknown SUICIDAL Unverified 07/07/20 19:48 THOUGHTS Assessment & Plan Assessment & Plan (1) PTSD (post-traumatic stress disorder): Status: Acute Code(s): F43.10 - Post-traumatic stress disorder, unspecified (2) Adjustment reaction with mixed disturbance of emotions and conduct: Status: Acute Code(s): F43.25 - Adjustment disorder with mixed disturbance of emotions and conduct Plan PTSD, Adjustment Reaction, Mixed. Plan: Admit, CV, 15 minute checks Encourage full milieu Remeron 7.5 mg HS Decrease Seroquel to 100 mg HS Collateral contacts [facility] referral Discharge planning. 05/22: Continue tx. Informed Consent: understands Reason for continued inpatient stay Substantial Risk for: rapid decompensation Time Spent With Patient Time: Total time managing care of this patient today ____ minutes.
[2024-05-22 20:00] VITALS: BP 150/84; PULSE 98; RESP 14; TEMP 36.8; O2SAT 97
[2024-05-22] MEDS: Mirtazapine 7.5 MG TABLET PO (20:30)
[2024-05-22] MEDS: QUEtiapine Fumarate 100 MG TABLET PO (20:30)
[2024-05-22] MEDS: traZODone HCL 50 MG TABLET PO (21:30)
[2024-05-23] MEDS: traZODone HCL 50 MG TABLET PO ×2 (02:12→21:25)
[2024-05-23] MEDS: hydrOXYzine HCL 25 MG TABLET PO (02:12)
[2024-05-23] MEDS: Acetaminophen 325 MG TABLET 650 MG PO (02:12)
[2024-05-23] MEDS: Nicotine 21 MG PATCH.TD24 TRANSDERMA (08:46)
[2024-05-23] MEDS: Sertraline HCL 50 MG TABLET 150 MG PO (08:46)
[2024-05-23] MEDS: Naltrexone HCl 50 MG TABLET PO (08:46)
[2024-05-23 09:15] VITALS: BP 116/71; PULSE 93; RESP 18; TEMP 36.4; O2SAT 98
--- NOTE | 2024-05-23 09:46 | P.PNPSI_ITS ---
Subjective Subjective Date of Service: 05/23/24 Reason For Visit: SI Interim History: met with patient. Discussed with Nursing. Overall feeling like things have improved regarding anxiety and stress levels and ability to cope. Reports now focusing more on himself versus trying to help other people outside. Looking forward to discharge planning. Adamantly denies suicidal thoughts. Looking forward to returning to work. No concerns on the unit. Sleep good. No med concerns. Medication Compliance: Yes Side effects from medications: No Attending Groups: Yes Review of Systems Acute medical concerns: No Review of Systems Review of Systems Yes all other systems are reviewed and are negative Mental Status Exam Mental Status Exam Narrative: Pleasant. Engaged. Organized. Euthymic. No SI. No HI. No agitation. No psychosis. Insight and judgment good Diagnostics Vital Signs (24Hr): Vital Signs - 24 hr 05/22/24 20:00 05/23/24 09:15 Temperature 98.2 F 97.6 F Pulse Rate 98 93 Respiratory Rate 14 18 Blood Pressure 150/84 H 116/71 Pulse Oximetry 97 98 Oxygen Delivery Method Room Air BMI result Body Mass Index 26.3 Medications Medications Current Medications Acetaminophen (Acetaminophen 325 Mg Tablet) 650 mg PO Q6H PRN PRN Reason: Headache/Pain Mild Scale (1-3) Last Admin: 05/23/24 02:12 Dose: 650 mg Al Hydroxide/Mg Hydroxide (Magnesium Hydrox/Alum Hydrox 30 Ml Oral.Susp) 30 ml PO Q6H PRN PRN Reason: Heartburn/Nausea Hydroxyzine HCl (Hydroxyzine Hcl 25 Mg Tablet) 25 mg PO Q6H PRN PRN Reason: Anxiety Last Admin: 05/23/24 02:12 Dose: 25 mg Magnesium Hydroxide (Milk Of Magnesia 30 Ml Oral.Susp) 30 ml PO DAILY PRN PRN Reason: Constipation Mirtazapine (Mirtazapine 7.5 Mg Tablet) 7.5 mg PO BEDTIME [facility] [place] Last Admin: 05/22/24 20:30 Dose: 7.5 mg Naltrexone HCl (Naltrexone Hcl 50 Mg Tablet) 50 mg PO DAILY [facility] Last Admin: 05/23/24 08:46 Dose: 50 mg Nicotine (Nicotine 21 Mg Patch.Td24) 21 mg TRANSDERMA DAILY [facility] Last Admin: 05/23/24 08:46 Dose: 21 mg Nicotine Polacrilex (Nicotine Polacrilex 2 Mg Gum) 2 mg BUCCAL Q2H PRN PRN Reason: Nicotine Cravings Last Admin: 05/22/24 21:05 Dose: 2 mg Quetiapine Fumarate (Quetiapine Fumarate 100 Mg Tablet) 100 mg PO BEDTIME [facility] Last Admin: 05/22/24 20:30 Dose: 100 mg Sertraline HCl (Sertraline Hcl 50 Mg Tablet) 150 mg PO DAILY [facility] Last Admin: 05/23/24 08:46 Dose: 150 mg Trazodone HCl (Trazodone Hcl 50 Mg Tablet) 50 mg PO BEDTIME MRX1 PRN PRN Reason: Insomnia Last Admin: 05/23/24 02:12 Dose: 50 mg Allergies Allergies Allergy/AdvReac Type Severity Reaction Status Date / Time sertraline [From ZOLOFT] AdvReac Unknown SUICIDAL Unverified 07/07/20 19:48 THOUGHTS Assessment & Plan Assessment & Plan (1) PTSD (post-traumatic stress disorder): Status: Acute Code(s): F43.10 - Post-traumatic stress disorder, unspecified (2) Adjustment reaction with mixed disturbance of emotions and conduct: Status: Acute Code(s): F43.25 - Adjustment disorder with mixed disturbance of emotions and conduct Plan PTSD, Adjustment Reaction, Mixed. Plan: Admit, CV, 15 minute checks Encourage full milieu Remeron 7.5 mg HS Decrease Seroquel to 100 mg HS Collateral contacts [facility] referral Discharge planning. 05/22: Continue tx. 05/23/2024: No changes Reason for continued inpatient stay Substantial Risk for: rapid decompensation Time Spent With Patient Time: Total time managing care of this patient today ____ minutes.
[2024-05-23] MEDS: Nicotine Polacrilex 2 MG GUM BUCCAL ×3 (11:53→20:23)
[2024-05-23 20:00] VITALS: BP 138/79; PULSE 96; RESP 15; TEMP 36.4; O2SAT 99
[2024-05-23] MEDS: Mirtazapine 7.5 MG TABLET PO (21:25)
[2024-05-23] MEDS: QUEtiapine Fumarate 100 MG TABLET PO (21:25)
[2024-05-24] MEDS: Acetaminophen 325 MG TABLET 650 MG PO ×2 (00:49→08:49)
[2024-05-24] MEDS: traZODone HCL 50 MG TABLET PO ×2 (00:50→21:12)
[2024-05-24] MEDS: hydrOXYzine HCL 25 MG TABLET PO ×2 (00:51→21:00)
--- NOTE | 2024-05-24 08:43 | P.PNPSI_ITS ---
Subjective Subjective Date of Service: 05/24/24 Reason For Visit: SI Interim History: met with patient. Discussed with Nursing. Overall things continue to be improved. Looking forward to discharge and returning to his job. Also looking forward to focusing more on himself. Feels positive regarding medications. Sleep good. Feeling safe. No SI Medication Compliance: Yes Side effects from medications: No Attending Groups: Yes Review of Systems Acute medical concerns: No Review of Systems Review of Systems Yes all other systems are reviewed and are negative Mental Status Exam Mental Status Exam Narrative: Pleasant. Engaged. Organized. Euthymic. No SI. No HI. No agitation. No psychosis. Insight and judgment good Diagnostics Vital Signs (24Hr): Vital Signs - 24 hr 05/23/24 09:15 05/23/24 20:00 Temperature 97.6 F 97.6 F Pulse Rate 93 96 Respiratory Rate 18 15 Blood Pressure 116/71 138/79 Pulse Oximetry 98 99 Oxygen Delivery Method Room Air BMI result Body Mass Index 26.3 Medications Medications Current Medications Acetaminophen (Acetaminophen 325 Mg Tablet) 650 mg PO Q6H PRN PRN Reason: Headache/Pain Mild Scale (1-3) Last Admin: 05/24/24 00:49 Dose: 650 mg Al Hydroxide/Mg Hydroxide (Magnesium Hydrox/Alum Hydrox 30 Ml Oral.Susp) 30 ml PO Q6H PRN PRN Reason: Heartburn/Nausea Hydroxyzine HCl (Hydroxyzine Hcl 25 Mg Tablet) 25 mg PO Q6H PRN PRN Reason: Anxiety Last Admin: 05/24/24 00:51 Dose: 25 mg Magnesium Hydroxide (Milk Of Magnesia 30 Ml Oral.Susp) 30 ml PO DAILY PRN PRN Reason: Constipation Mirtazapine (Mirtazapine 7.5 Mg Tablet) 7.5 mg PO BEDTIME [facility] Last Admin: 05/23/24 21:25 Dose: 7.5 mg Naltrexone HCl (Naltrexone Hcl 50 Mg Tablet) 50 mg PO DAILY [facility] Last Admin: 05/23/24 08:46 Dose: 50 mg Nicotine (Nicotine 21 Mg Patch.Td24) 21 mg TRANSDERMA DAILY [facility] Last Admin: 05/23/24 08:46 Dose: 21 mg Nicotine Polacrilex (Nicotine Polacrilex 2 Mg Gum) 2 mg BUCCAL Q2H PRN PRN Reason: Nicotine Cravings Last Admin: 05/23/24 20:23 Dose: 2 mg Quetiapine Fumarate (Quetiapine Fumarate 100 Mg Tablet) 100 mg PO BEDTIME [facility] Last Admin: 05/23/24 21:25 Dose: 100 mg Sertraline HCl (Sertraline Hcl 50 Mg Tablet) 150 mg PO DAILY [facility] Last Admin: 05/23/24 08:46 Dose: 150 mg Trazodone HCl (Trazodone Hcl 50 Mg Tablet) 50 mg PO BEDTIME MRX1 PRN PRN Reason: Insomnia Last Admin: 05/24/24 00:50 Dose: 50 mg Allergies Allergies Allergy/AdvReac Type Severity Reaction Status Date / Time sertraline [From ZOLOFT] AdvReac Unknown SUICIDAL Unverified 07/07/20 19:48 THOUGHTS Assessment & Plan Assessment & Plan (1) PTSD (post-traumatic stress disorder): Status: Acute Code(s): F43.10 - Post-traumatic stress disorder, unspecified (2) Adjustment reaction with mixed disturbance of emotions and conduct: Status: Acute Code(s): F43.25 - Adjustment disorder with mixed disturbance of emotions and conduct Plan PTSD, Adjustment Reaction, Mixed. Plan: Admit, CV, 15 minute checks Encourage full milieu Remeron 7.5 mg HS Decrease Seroquel to 100 mg HS Collateral contacts [facility] referral Discharge planning. 05/22: Continue tx. 05/23/2024: No changes 05/24/2024: No changes Reason for continued inpatient stay Substantial Risk for: rapid decompensation Time Spent With Patient Time: Total time managing care of this patient today ____ minutes.
[2024-05-24] MEDS: Nicotine 21 MG PATCH.TD24 TRANSDERMA (08:47)
[2024-05-24] MEDS: Naltrexone HCl 50 MG TABLET PO (08:47)
[2024-05-24] MEDS: Sertraline HCL 50 MG TABLET 150 MG PO (08:47)
[2024-05-24] MEDS: Nicotine Polacrilex 2 MG GUM BUCCAL ×3 (08:49→21:12)
[2024-05-24 09:03] VITALS: BP 145/81; PULSE 92; RESP 18; TEMP 36.4; O2SAT 99
[2024-05-24 20:00] VITALS: BP 140/84; PULSE 96; RESP 18; TEMP 36.4; O2SAT 98
[2024-05-24] MEDS: QUEtiapine Fumarate 100 MG TABLET PO (21:00)
[2024-05-24] MEDS: Mirtazapine 7.5 MG TABLET PO (21:00)
[2024-05-25] MEDS: traZODone HCL 50 MG TABLET PO ×2 (01:38→21:41)
[2024-05-25 08:00] VITALS: BP 121/83; PULSE 86; RESP 16; TEMP 36.8; O2SAT 99
[2024-05-25] MEDS: Nicotine 21 MG PATCH.TD24 TRANSDERMA (08:37)
[2024-05-25] MEDS: Sertraline HCL 50 MG TABLET 150 MG PO (08:38)
[2024-05-25] MEDS: Naltrexone HCl 50 MG TABLET PO (08:38)
[2024-05-25] MEDS: Acetaminophen 325 MG TABLET 650 MG PO ×2 (08:44→21:39)
[2024-05-25] MEDS: Nicotine Polacrilex 2 MG GUM BUCCAL ×4 (09:36→20:48)
[2024-05-25] MEDS: hydrOXYzine HCL 25 MG TABLET PO ×2 (11:30→21:40)
--- NOTE | 2024-05-25 16:27 | HO.PSYCHPN ---
Subjective Subjective Date of Service: 05/25/24 Reason For Visit: SI Subjective Notes: Conditional Voluntary Healthcare Proxy: No Guardianship: No Medical Problems Affecting Mental Status: No Interim History: Reports he feels prepared to discharge. Review of meds, requests Seroquel increase to 150 mg. 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 Reports sleep is improving, however awake at 1am this morning. Asks for Seroquel increase. No SI/HI/AH/VH sx of psychosis or leticia. Medication Compliance: Yes Side effects from medications: No Attending Groups: Intermittent Review of Systems Acute medical concerns: No Medical Review of Systems: unchanged Review of Systems Review of Systems Yes all other systems are reviewed and are negative Mental Status Exam Mental Status Exam Patient Appearance: Appropriate Patient Orientation: Person, Place, Time and Situation Level of Consciousness: Alert Patient Behavior: Appropriate and Good Eye Contact Mood Description: Appropriate Affect Description: Appropriate Patient Cognition Impaired: No Ability to Follow Directions: Good Speech Pattern: Spontaneous Speech Memory Description: Intact Hallucinations: None Delusions: Not Present Thought Process: Intact and Goal Oriented Thought Content: positive for Intact and positive for Goal Oriented Judgement: Good Diagnostics Vital Signs (24Hr): Vital Signs - 24 hr 05/24/24 20:00 05/25/24 08:00 Temperature 97.5 F 98.3 F Pulse Rate 96 86 Respiratory Rate 18 16 Blood Pressure 140/84 H 121/83 Pulse Oximetry 98 99 Oxygen Delivery Method Room Air BMI result Body Mass Index 26.3 Medications Medications Current Medications Acetaminophen (Acetaminophen 325 Mg Tablet) 650 mg PO Q6H PRN PRN Reason: Headache/Pain Mild Scale (1-3) Last Admin: 05/25/24 08:44 Dose: 650 mg Al Hydroxide/Mg Hydroxide (Magnesium Hydrox/Alum Hydrox 30 Ml Oral.Susp) 30 ml PO Q6H PRN PRN Reason: Heartburn/Nausea Hydroxyzine HCl (Hydroxyzine Hcl 25 Mg Tablet) 25 mg PO Q6H PRN PRN Reason: Anxiety Last Admin: 05/25/24 11:30 Dose: 25 mg Magnesium Hydroxide (Milk Of Magnesia 30 Ml Oral.Susp) 30 ml PO DAILY PRN PRN Reason: Constipation Mirtazapine (Mirtazapine 7.5 Mg Tablet) 7.5 mg PO BEDTIME [facility] Last Admin: 05/24/24 21:00 Dose: 7.5 mg Naltrexone HCl (Naltrexone Hcl 50 Mg Tablet) 50 mg PO DAILY [facility] Last Admin: 05/25/24 08:38 Dose: 50 mg Nicotine (Nicotine 21 Mg Patch.Td24) 21 mg TRANSDERMA DAILY [facility] Last Admin: 05/25/24 08:37 Dose: 21 mg Nicotine Polacrilex (Nicotine Polacrilex 2 Mg Gum) 2 mg BUCCAL Q2H PRN PRN Reason: Nicotine Cravings Last Admin: 05/25/24 15:06 Dose: 2 mg Quetiapine Fumarate (Quetiapine Fumarate 100 Mg Tablet) 100 mg PO BEDTIME [facility] Last Admin: 05/24/24 21:00 Dose: 100 mg Sertraline HCl (Sertraline Hcl 50 Mg Tablet) 150 mg PO DAILY [facility] Last Admin: 05/25/24 08:38 Dose: 150 mg Trazodone HCl (Trazodone Hcl 50 Mg Tablet) 50 mg PO BEDTIME MRX1 PRN PRN Reason: Insomnia Last Admin: 05/25/24 01:38 Dose: 50 mg Allergies Allergies Allergy/AdvReac Type Severity Reaction Status Date / Time No Known Allergies Allergy Verified 05/25/24 11:33 Assessment & Plan Assessment & Plan (1) PTSD (post-traumatic stress disorder): Status: Acute Code(s): F43.10 - Post-traumatic stress disorder, unspecified (2) Adjustment reaction with mixed disturbance of emotions and conduct: Status: Acute Code(s): F43.25 - Adjustment disorder with mixed disturbance of emotions and conduct Plan PTSD, Adjustment Reaction, Mixed. Plan: Admit, CV, 15 minute checks Encourage full milieu Remeron 7.5 mg HS Decrease Seroquel to 100 mg HS Collateral contacts [facility] referral Discharge planning. 05/22: Continue tx. 05/23/2024: No changes 05/24/2024: No changes 05/25/24: Discharge 05/26. Reason for continued inpatient stay Substantial Risk for: stable for discharge Time Spent With Patient Time: Total time managing care of this patient today ____ minutes.
[2024-05-25 20:00] VITALS: BP 134/64; PULSE 102; RESP 17; TEMP 36.6; O2SAT 99
[2024-05-25] MEDS: QUEtiapine Fumarate 50 MG TABLET 150 MG PO (21:40)
[2024-05-25] MEDS: Mirtazapine 7.5 MG TABLET PO (21:41)
[2024-05-26] MEDS: Acetaminophen 325 MG TABLET 650 MG PO (07:26)
[2024-05-26] MEDS: Nicotine Polacrilex 2 MG GUM BUCCAL (07:26)
[2024-05-26] MEDS: Nicotine 21 MG PATCH.TD24 TRANSDERMA (07:26)
[2024-05-26 08:00] VITALS: BP 149/93; PULSE 94; TEMP 36.3; O2SAT 100
[2024-05-26] MEDS: Sertraline HCL 50 MG TABLET 150 MG PO (08:39)
[2024-05-26] MEDS: Naltrexone HCl 50 MG TABLET PO (08:39)
--- NOTE | 2024-05-26 11:52 | P.DS_ITS ---
DS: Providers Provider Date of Service: 05/26/24 Date of admission: 05/20/24 17:33 Date of discharge: 05/26/24 Primary care physician: None Physician Admitting clinician: Shelbi Quintana Attending physician on admission: Jeremiah Gutierrez Consults: 05/20/24 19:32 Consult to Hospitalist Routine Comment: Consulting Provider: Hospitalist Reason For Exam: medical H&P Attending physician on discharge: Jeremiah Gutierrez Discharging clinician: Shelbi Quintana DS: Diagnosis Discharge Diagnosis (1) PTSD (post-traumatic stress disorder): Status: Acute (2) Adjustment reaction with mixed disturbance of emotions and conduct: Status: Acute DS: Medications Discharge Medications Home Medications: Home Medications ?Medication ?Instructions ?Recorded ?Confirmed hydroxyzine pamoate 50 mg capsule 50 mg PO BID PRN Anxiety 05/20/24 05/20/24 Previous Rx's ?Medication ?Instructions ?Recorded mirtazapine 7.5 mg tablet 7.5 mg PO BEDTIME #30 tabs 05/25/24 naltrexone 50 mg tablet 50 mg PO DAILY #30 tabs 05/25/24 quetiapine 50 mg tablet 150 mg (3 x 50 mg) PO BEDTIME #90 05/25/24 tabs sertraline 100 mg tablet 150 mg (1.5 x 100 mg) PO DAILY #45 05/25/24 tabs trazodone 50 mg tablet 50 mg PO BEDTIME MRX1 PRN Insomnia 05/25/24 #60 tabs Mental Status Exam Mental Status Exam Patient Appearance: Appropriate Patient Orientation: Person, Place, Time and Situation Level of Consciousness: Alert Patient Behavior: Appropriate and Good Eye Contact Mood Description: Appropriate Affect Description: Appropriate Patient Cognition Impaired: No Ability to Follow Directions: Good Speech Pattern: Spontaneous Speech Memory Description: Intact Hallucinations: None Delusions: Not Present Thought Process: Intact and Goal Oriented Thought Content: positive for Intact and positive for Goal Oriented Judgement: Good DS: Summary Hospital Course Hospital Course: Admission to adult psychiatry for exacerbation of PTSD with mixed adjustment reaction. [employer] pt reportedly cut his forearm for relief of stress and was overtaking Seroquel in an attempt to sleep. 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 He reports great pressure and stress with the job and minimal support. Along with the stress, the sleeping changes he has attempted to make have not worked well and he identifies sleep deprivation as a main stress. Medications were evaluated and adjusted. Pt was offered full milieu support. He will attempt to make a job change and will attend out patient services with [facility] upon discharge. His family was supportive in his decision to make changes in his work schedule and environment. Status at Discharge Functional status at discharge: independent ambulation Overall status at discharge: patient is progressing back to baseline Time Spent with Patient Time attestation: Total time managing care of this patient today ____ minutes. Time spent: Less than 30 minutes Discharge Plan Discharge Anticipated Discharge Date/Time: 05/26/24 12:00 Patient Disposition: Home, Self-Care Discharge Diagnosis: PTSD Adjustment Reaction, Mixed Referrals: [facility] Intake w Isabella Giles [Other] - 05/29/24 10:00 am [facility] Psych Eval w Darlene Zuniga [Other] - 06/18/24 10:00 am (Telehealth) [facility] Med Mgmt w Darlene Zuniga [Other] - 07/16/24 9:00 am (Telehealth ) Physician,None [Primary Care Provider] - (Pt declined follow up appointment. ) Discharge Medications: New trazodone 50 mg Tablet 50 mg PO BEDTIME MRX1 PRN (Reason: Insomnia) Qty: 60 0RF mirtazapine 7.5 mg Tablet 7.5 mg PO BEDTIME Qty: 30 0RF quetiapine 50 mg Tablet 150 mg PO BEDTIME Qty: 90 0RF Continued hydroxyzine pamoate 50 mg capsule 50 mg PO BID PRN (Reason: Anxiety) naltrexone 50 mg tablet 50 mg PO DAILY Qty: 30 0RF sertraline 100 mg tablet 150 mg PO DAILY Qty: 45 0RF Discontinued quetiapine 300 mg tablet 300 mg PO BEDTIME Patient Comments: Patient has not picked up this script, still in pharmacy. Discharge Orders: Discharge Order (Routine); Ordered 05/26/24 Ordered By: Shelbi Quintana Diet: Advance to usual diet Activity on Discharge: As tolerated Stand Alone Forms: Patient Portal Discharge page, Community Support Print Language: Slovenian Care Plan Goals: Mood and Behavioral Stabilization Health Concerns: Mood and Behavioral Stabilization Plan of Treatment: Attend scheduled appointments Take medications as directed Assessment: Denies SI/HI/AH/VH. No sx of psychosis/leticia Feeling prepared to return to family/work. Discharge Date/Time: 05/26/24 11:10
== END 2024-05-26 11:10 | disposition home or self-care (01) | DRG 755 ==
PROVIDERS: Admitting Provider Psychiatry & Neurology Psychiatry; Visit Provider Clinical Nurse Specialist Psychiatric/Mental Health, Adult
DX: F43.25 Adjustment disorder with mixed disturbance of emotions and conduct (principal); R45.851 Suicidal ideations; F10.90 Alcohol use, unspecified, uncomplicated; F43.10 Post-traumatic stress disorder, unspecified; F17.210 Nicotine dependence, cigarettes, uncomplicated; Z91.52 Personal history of nonsuicidal self-harm; Z71.6 Tobacco abuse counseling; Z79.899 Other long term (current) drug therapy

== ENCOUNTER → 2024-05-20 17:33 | Outpatient (BNV) | payer OTHER, SELFPAY | PROVIDERS: Admitting Provider Psychiatry & Neurology Psychiatry; Visit Provider Student in an Organized Health Care Education/Training Program | DX: Z02.2 Encounter for examination for admission to residential institution (principal) | CPT/HCPCS: 99429 ==

== ENCOUNTER → 2024-05-20 17:33 | Outpatient (BNV) | payer OTHER, SELFPAY | PROVIDERS: Admitting Provider Psychiatry & Neurology Psychiatry; Visit Provider Clinical Nurse Specialist Psychiatric/Mental Health, Adult | DX: F43.11 Post-traumatic stress disorder, acute (principal); F43.25 Adjustment disorder with mixed disturbance of emotions and conduct | CPT/HCPCS: 90792; 99231; 99232; 99238 ==